=== PATIENT | female | born 1950 | race Caucasian/White ===

== ENCOUNTER 2017-03-13 12:20 | Day surgery (SDC) | payer OTHER ==
[~2017-03-13] VITALS: Ht 162.6 cm; Wt 98.0 kg
[~2017-03-13 12:20] MED LIST: 0.9% Sodium Chloride 1,000 ML IV SCH; ASPI-1148 PO; ASPI-973 PO; ATEN25TA PO; CHOL400T PO; LOSA1TAB70 PO; NAPR220C16 PO; Sodium Chloride LOK Flush 10 mL Syringe IV PRN; fentaNYL-PF 50 mCg/mL 2 mL Inj IVPUSH PRN
[2017-03-13 13:18] VITALS: BP 127/66; PULSE 54; RESP 16; O2SAT 98
--- NOTE | 2017-03-13 14:44 | PCM.ENDCOL ---
Colonoscopy Date of Service: March 13, 2017 Physician Efraín Santamaria MD Pre Procedure Diagnosis: Screening Post Procedure Dx & Findings: Hemorrhoids Procedure Colonoscopy PROCEDURE IN DETAIL: Prep adequate Withdrawal time 15 minutes After unremarkable rectal examination the Olympus video colonoscope was inserted patient's anal canal and was advanced to cecum. Landmarks were identified including the ileocecal valve and appendiceal orifice. Scope was withdrawn systematically. Visualized colonic mucosa showed healthy shiny mucosa with normal healthy-appearing vasculature. In the rectum retroflexion was done which showed hemorrhoids. Anal canal was inspected carefully on the way out and hemorrhoids noted. Impression Hemorrhoids Recommendation Repeat colonoscopy in 10 years if there is no family or personal history of colon cancer or polyp. Presedation Assessment Risks and Benefits Informed consent was obtained from the patient after all risks and benefits including but not limited to drug reaction, infection, pain, bleeding, perforation, as well as alternatives were discussed. Patient monitoring Continuous pulse oximetry, cardiac monitoring, blood pressure monitoring, IV access, and oxygen at 2L per nasal cannula. Periprocedural Fentanyl: Fentanyl 100mcg Incrementally Midazolam: Midazolam 5mg Incrementally Complications There were no periprocedural complications identified. Post Procedure Plan Post Procedure Recommendations 1. Restrict activities today. 2. Resume normal activities in the morning. 3. Resume medications. 4. Patient informed of normal post procedure side effects as bloating, drowsiness, blood streaking in the stool. 5. average risk CRCS. If colon polyps come back as: -Hyperplastic- can repeat colonoscopy in 10 years -Tubular adenoma- repeat colonoscopy in 5 years -Tubulovillous/villous adenoma- repeat colonoscopy in 3 years -If any dysplasia- return to clinic as soon as possible 6. Please don't hesitate to call me with any questions. Efraín Santamaria MD March 13, 2017 14:43
[2017-03-13 14:46] VITALS: BP 130/68; PULSE 59; RESP 16; O2SAT 97
[2017-03-13 14:56] VITALS: BP 114/67; PULSE 52; RESP 16; O2SAT 94
[2017-03-13 15:06] VITALS: BP 115/67; PULSE 57; RESP 16; O2SAT 96
== END 2017-03-13 23:59 ==
LOC: END 12:20
PROVIDERS: ATTEND Internal Medicine
DX: Z12.11 Encounter for screening for malignant neoplasm of colon (principal); K64.9 Unspecified hemorrhoids
CPT/HCPCS: 99153; G0121; G0500; J7030